=== PATIENT | male | born 1945 | race Caucasian/White ===

== ENCOUNTER → 2017-08-03 | Outpatient (CLI) | payer MEDICARE, OTHER ==
[~2017-08-03] MED LIST: AMITRIPTYLINE25 MG PO; ANAFRANIL50 MG PO; ASA; ASPI-COR81 M1 PO; BENTYL10 MG PO; CIPRO500 MG PO; COLACE100 MG PO; CYMBALTA60 M1 PO; ENALAPRIL2.5 MG PO; EPA/GLA1 SGL PO; FAT ABSORB1 CAP PO; FIBER PILL; FINASTERIDE5 MG PO; FISH OIL 500MG500 MG PO; FLONASE 0.05% 121 EA NAS; GLIMEPIRIDE4 MG PO; KEFLEX500 MG PO; METFORMIN HCL500 M1 PO; MIRALAX17 GM/DOSE PO; PLAVIX75 MG PO; POLYETHYLENE GLYCOL; SERTRALINE HCL50 MG PO; SIMVASTATIN20 MG; VITAMIN D5000 IU PO; XANAX0.25 MG PO
[2017-08-03 10:33] LABS: CHOLESTEROL 131 mg/dL (<200); TRIGLYCERIDES 34 mg/dl (<150); VLDL CHOLESTEROL 7 mg/dL (6-40)
[2017-08-03 10:35] LABS: HDL CHOLESTEROL 69 mg/dl (40-60); LDL CHOLESTEROL 55 mg/dL (9-159)
== END | disposition home or self-care (01) ==
LOC: LAB 09:09
PROVIDERS: Internal Medicine Cardiovascular Disease
DX: E78.5 Hyperlipidemia, unspecified (principal)

== ENCOUNTER → 2017-08-31 | Outpatient (CLI) | payer MEDICARE, OTHER | END | disposition home or self-care (01) | LOC: RAD 14:44 | DX: M16.11 Unilateral primary osteoarthritis, right hip (principal); M76.9 Unspecified enthesopathy, lower limb, excluding foot ==

== ENCOUNTER → 2017-10-16 | Outpatient (CLI) | payer MEDICARE, OTHER | LOC: LAB 14:30 | DX: Z12.5 Encounter for screening for malignant neoplasm of prostate (principal) ==

== ENCOUNTER → 2017-12-04 | Outpatient (CLI) | payer MEDICARE, OTHER ==
[~2017-12-04] MED LIST changes: -BENTYL10 MG PO; +BENTYL20 MG/2 ML PO; +GLUCOPHAGE500 M1 PO; -METFORMIN HCL500 M1 PO; +MIRALAX17 GM PO; -MIRALAX17 GM/DOSE PO
== END | disposition home or self-care (01) ==
LOC: LAB 08:30 → CT 09:00
PROVIDERS: Internal Medicine
DX: N28.1 Cyst of kidney, acquired (principal); R10.31 Right lower quadrant pain

== ENCOUNTER → 2017-12-14 | Day surgery (SDC) | payer MEDICARE, OTHER ==
[2017-12-11 10:05] VITALS: BP 132/67
[~2017-12-14] VITALS: Ht 182.8 cm; Wt 90.7 kg
[~2017-12-14] MED LIST changes: +AMITIZA8 MCG PO; +CYMBALTA60 MG PO; +FISH OIL 1,0001 EAC3 PO; +PANTOPRAZOLE SO40 MG PO
--- NOTE | ~2017-12-14 | PROC NOTE ---
[place], [place] PROCEDURE NOTE NAME: [facility] #: [id number] UNIT #: [id number] ROOM: DOCTOR: HILLARY FUNK MD BIRTHDATE: [birth year] DOS: 12/14/2017 PREOPERATIVE DIAGNOSIS: Forehead skin lesion. POSTOPERATIVE DIAGNOSIS: Forehead skin lesion. PROCEDURE: Excision of forehead skin lesion. SURGEON: Hillary Funk MD RACING MECHANIC: KRISTIE. ANESTHESIA: MAC with local (1% plain lidocaine). INDICATIONS: This is a 72-year-old gentleman who is here for an excision of a forehead skin lesion. The procedure and its complications were explained to the patient in detail preoperatively. Complications that were discussed included but were not limited to, bleeding, infection and prolonged pain. He agreed to proceed. DESCRIPTION OF PROCEDURE: After identifying the patient, the patient was brought to the operating room and placed in a supine position. After IV sedation was administered, a timeout procedure was called and an elliptical incision was marked around the area of the lesion that needed to be excised, 1% plain lidocaine was injected for local anesthesia. An incision was made and deepened in layers and with the help of electrocautery hemostasis was achieved and the lesion was then excised and sent for histopathological diagnosis. Hemostasis was confirmed with the help of electrocautery and thereafter the edges of the skin were undermined for adequate closure, which was performed with the help of 3-0 nylon in an interrupted fashion. A dressing was placed. The patient tolerated the procedure well and was brought back to the recovery room in stable fashion. There were no complications. Dr. Hillary Funk, the attending surgeon, was present throughout the operating case. Hillary Funk MD CM:PROCNOTE:PROCEDURE NOTE [id number] HILLARY FUNK MD
[2017-12-14 07:45] VITALS: BP 106/66
[2017-12-14 08:59] VITALS: BP 113/63
[2017-12-14 09:14] VITALS: BP 116/69
== END ==
LOC: SDC 12-11 09:30
DX: D04.39 Carcinoma in situ of skin of other parts of face (principal); L57.0 Actinic keratosis; I25.10 Atherosclerotic heart disease of native coronary artery without angina pectoris; E11.9 Type 2 diabetes mellitus without complications; K21.9 Gastro-esophageal reflux disease without esophagitis; F41.9 Anxiety disorder, unspecified; F32.9 Major depressive disorder, single episode, unspecified; Z98.890 Other specified postprocedural states; Z95.0 Presence of cardiac pacemaker; E78.5 Hyperlipidemia, unspecified; Z79.899 Other long term (current) drug therapy; J45.909 Unspecified asthma, uncomplicated; Z83.3 Family history of diabetes mellitus; Z80.9 Family history of malignant neoplasm, unspecified

== ENCOUNTER → 2018-03-15 | Outpatient (CLI) | payer MEDICARE, OTHER | END | disposition home or self-care (01) | LOC: RAD 12:48 | DX: M19.011 Primary osteoarthritis, right shoulder (principal) ==

== ENCOUNTER → 2018-05-01 | Outpatient (CLI) | payer MEDICARE, OTHER ==
[~2018-05-01] MED LIST changes: +PROBIOTIC GOLD1 EACH PO; +VITAMIN D-32000 UNIT PO; -VITAMIN D5000 IU PO; -XANAX0.25 MG PO; +XANAX0.5 MG PO
== END | disposition home or self-care (01) ==
LOC: ORTHO 09:01 → LAB 10:58
DX: R22.30 Localized swelling, mass and lump, unspecified upper limb (principal)

== ENCOUNTER → 2018-05-04 | Outpatient (CLI) | payer MEDICARE, OTHER ==
[2018-05-04 10:42] LABS: BASO % 0.7 % (0.0-1.0); EOS # 0.1 10*3/uL (0.0-0.4); EOS % 2.3 % (1.0-4.0); HEMATOCRIT 39.9 % (42.0-52.0); HEMOGLOBIN 13.5 g/dl (14.0-18.0); LYMPH # 1.5 10*3/uL (1.3-4.4); LYMPH % 24.2 % (27.0-41.0); MEAN CELL VOLUME 96.4 fl (80.0-94.0); MEAN CORPUSCULAR HGB 32.6 pg (27.0-31.0); MEAN CORPUSCULAR HGB CONC 33.8 g/dl (33.0-37.0); MEAN PLATELET VOLUME 9.6 fl (9.6-12.3); MONO # 0.6 10*3/uL (0.1-1.0); MONO % 9.1 % (3.0-9.0); NEUT # 3.8 10*3/uL (2.3-7.9); NEUT % 63.5 % (47.0-73.0); PLATELET COUNT AUTOMATED 233 10*3/uL (130-400); RED BLOOD COUNT 4.14 10*6/uL (4.50-5.90); RED CELL DISTRI WIDTH 12.4 % (0-14.5)
[2018-05-04 10:59] LABS: URIC ACID 5.7 mg/dL (3.5-7.2)
[2018-05-05 08:11] LABS: RHEUMATOID ARTHRITIS FACTOR <10.0 IU/mL (0.0-13.9)
== END | disposition home or self-care (01) ==
LOC: LAB 09:56
PROVIDERS: Orthopaedic Surgery
DX: M19.012 Primary osteoarthritis, left shoulder (principal); M10.9 Gout, unspecified; E55.9 Vitamin D deficiency, unspecified; Z79.899 Other long term (current) drug therapy

== ENCOUNTER → 2018-06-08 | Day surgery (SDC) | payer MEDICARE, OTHER ==
[~2018-06-08] VITALS: Ht 182.8 cm; Wt 93.0 kg
--- NOTE | ~2018-06-08 | PROC NOTE ---
[place], [place] PROCEDURE NOTE NAME: [facility] #: [id number] UNIT #: [id number] ROOM: DOCTOR: MISA MCCALLUM,YOLANDA BIRTHDATE: [birth year] DOS: PROCEDURE: Colonoscopy. INDICATIONS: History of colon polyps. Informed consent was obtained from the patient after the indication of procedure, the alternatives and potential complications were explained to him. PROCEDURE MEDICATION: Sedation was administered by Anesthesiology Department. SCOPE USED: Olympus diagnostic pediatric colonoscope variable stiffness GIF-180, depth of insertion was to the cecum, which was identified by the usual landmarks, appendiceal orifice, ileocecal valve and triangular fold, in addition to transillumination in the right lower quadrant. FINDINGS: After adequate sedation, the patient was placed in left lateral decubitus position. Rectal examination showed a normal sphincter tone and no external hemorrhoids. Scope was introduced into the rectum, then advanced to the cecum with some difficulty due to looping the left colon. The prep was adequate. The colon mucosa appeared normal with no evidence of polyps, diverticula or ulcerations. Retroflexed views in the rectum showed a grade 1 internal hemorrhoids. The scope was then withdrawn after the rectum was decompressed. The patient tolerated the procedure well. IMPRESSION: 1. Normal colon mucosa. No polyps seen. 2. No evidence of internal hemorrhoids. PLAN: There is no need for further GI workup at this time. Repeat surveillance colonoscopy is advised in 5 years. Office followup will be scheduled on p.r.n. YOLANDA BYNUM MD CM:PROCNOTE:PROCEDURE NOTE [id number] COLLINS BYNUM MD
[2018-06-08 09:10] VITALS: BP 123/89
[2018-06-08 09:38] VITALS: BP 93/64
[2018-06-08 09:55] VITALS: BP 114/51
[2018-06-08 10:10] VITALS: BP 133/87
[2018-06-08 12:49] VITALS: BP 94/56
[2018-06-08 12:56] VITALS: BP 104/61
== END | disposition home or self-care (01) ==
LOC: SDC 05-28 08:00
DX: Z12.11 Encounter for screening for malignant neoplasm of colon (principal); Z86.010 Personal history of colon polyps; K64.1 Second degree hemorrhoids; K21.9 Gastro-esophageal reflux disease without esophagitis; K27.9 Peptic ulcer, site unspecified, unspecified as acute or chronic, without hemorrhage or perforation; E11.9 Type 2 diabetes mellitus without complications; I25.10 Atherosclerotic heart disease of native coronary artery without angina pectoris; F41.9 Anxiety disorder, unspecified; F32.9 Major depressive disorder, single episode, unspecified; Z79.899 Other long term (current) drug therapy; Z95.0 Presence of cardiac pacemaker; Z98.890 Other specified postprocedural states
CPT/HCPCS: 00812; G0105

== ENCOUNTER 2018-06-15 18:23 | Emergency (ER) | payer MEDICARE, OTHER ==
[~2018-06-15] VITALS: Ht 182.8 cm; Wt 90.7 kg
== END 2018-06-15 20:19 | disposition home or self-care (01) ==
LOC: ED 18:23
DX: S83.91XA Sprain of unspecified site of right knee, initial encounter (principal); Z79.82 Long term (current) use of aspirin; Z79.84 Long term (current) use of oral hypoglycemic drugs; Z79.899 Other long term (current) drug therapy; Z95.0 Presence of cardiac pacemaker; X50.1XXA Overexertion from prolonged static or awkward postures, initial encounter; Y93.89 Activity, other specified; Y92.89 Other specified places as the place of occurrence of the external cause; Y99.8 Other external cause status

== ENCOUNTER → 2018-07-24 | Outpatient (CLI) | payer MEDICARE, OTHER | END | disposition home or self-care (01) | LOC: US 14:13 | DX: M79.661 Pain in right lower leg (principal); R60.0 Localized edema ==

== ENCOUNTER → 2018-08-07 | Outpatient (CLI) | payer MEDICARE, OTHER ==
[2018-08-07 13:40] LABS: CHOLESTEROL 102 mg/dL (<200); TRIGLYCERIDES 57 mg/dl (<150); VLDL CHOLESTEROL 11 mg/dL (6-40)
[2018-08-07 13:41] LABS: HDL CHOLESTEROL 55 mg/dl (40-60); LDL CHOLESTEROL 36 mg/dL (9-159)
== END ==
LOC: LAB 12:15
PROVIDERS: Internal Medicine Cardiovascular Disease
DX: E78.5 Hyperlipidemia, unspecified (principal)

== ENCOUNTER → 2018-10-17 | Outpatient (CLI) | payer MEDICARE, OTHER | END | disposition home or self-care (01) | LOC: LAB 13:04 | DX: Z12.5 Encounter for screening for malignant neoplasm of prostate (principal) ==

== ENCOUNTER → 2019-01-21 | Outpatient (CLI) | payer MEDICARE, OTHER | END | disposition home or self-care (01) | LOC: ORTHO 02:19 → RAD 10:00 → ORTHO 20:08 | DX: M19.012 Primary osteoarthritis, left shoulder (principal); M19.011 Primary osteoarthritis, right shoulder; M75.101 Unspecified rotator cuff tear or rupture of right shoulder, not specified as traumatic ==

== ENCOUNTER → 2019-07-10 | Outpatient (CLI) | payer MEDICARE, OTHER ==
[2019-07-10 11:47] LABS: BASO % 0.5 % (0.0-1.0); EOS # 0.2 10*3/uL (0.0-0.4); EOS % 1.7 % (1.0-4.0); HEMATOCRIT 38.4 % (42.0-52.0); HEMOGLOBIN 12.5 g/dl (14.0-18.0); LYMPH # 1.2 10*3/uL (1.3-4.4); LYMPH % 13.7 % (27.0-41.0); MEAN CELL VOLUME 101.1 fl (80.0-94.0); MEAN CORPUSCULAR HGB 32.9 pg (27.0-31.0); MEAN CORPUSCULAR HGB CONC 32.6 g/dl (33.0-37.0); MEAN PLATELET VOLUME 9.3 fl (9.6-12.3); MONO # 0.5 10*3/uL (0.1-1.0); MONO % 5.3 % (3.0-9.0); NEUT # 6.9 10*3/uL (2.3-7.9); NEUT % 78.5 % (47.0-73.0); PLATELET COUNT AUTOMATED 285 10*3/uL (130-400); RED CELL DISTRI WIDTH 12.7 % (0-14.5); WHITE BLOOD COUNT 8.8 10*3/uL (4.8-10.8)
[2019-07-10 12:21] LABS: ALBUMIN 3.2 gm/dl (3.1-4.5); BUN 22 mg/dl (7-24); CHLORIDE 109 mmol/L (98-107); CHOLESTEROL 98 mg/dL (<200); POTASSIUM 4.9 mmol/L (3.5-5.1); SGOT/AST 17 IU/L (3-35); SGPT/ALT 21 U/L (12-78); SODIUM 142 mmol/L (136-145)
[2019-07-10 12:30] LABS: ALKALINE PHOSPHATASE 91 U/L (45-117); CREATININE 0.98 mg/dL (0.70-1.30); FREE T4 0.78 ng/dl (0.76-1.46); HDL CHOLESTEROL 42 mg/dl (40-60); LDL CHOLESTEROL 33 mg/dL (9-159); TOTAL PROTEIN 6.7 gm/dL (6.4-8.2); TRIGLYCERIDES 113 mg/dl (<150); VLDL CHOLESTEROL 23 mg/dL (6-40)
[2019-07-10 12:52] LABS: VITAMIN D, 25-HYDROXY 23.8 ng/mL (30-100)
== END | disposition home or self-care (01) ==
LOC: LAB 11:27
PROVIDERS: Internal Medicine
DX: E55.9 Vitamin D deficiency, unspecified (principal); E78.2 Mixed hyperlipidemia; I10 Essential (primary) hypertension; E11.9 Type 2 diabetes mellitus without complications; D52.9 Folate deficiency anemia, unspecified; D51.9 Vitamin B12 deficiency anemia, unspecified

== ENCOUNTER 2019-08-29 15:04 | Emergency (ER) | payer MEDICARE, OTHER ==
[~2019-08-29] VITALS: Ht 182.8 cm; Wt 92.5 kg
== END 2019-08-29 17:56 | disposition home or self-care (01) ==
LOC: ED 15:04
DX: S63.502A Unspecified sprain of left wrist, initial encounter (principal); S40.012A Contusion of left shoulder, initial encounter; S09.90XA Unspecified injury of head, initial encounter; K21.9 Gastro-esophageal reflux disease without esophagitis; E11.9 Type 2 diabetes mellitus without complications; Z79.899 Other long term (current) drug therapy; Z79.82 Long term (current) use of aspirin; Z95.0 Presence of cardiac pacemaker; W10.8XXA Fall (on) (from) other stairs and steps, initial encounter; Y93.89 Activity, other specified; Y92.89 Other specified places as the place of occurrence of the external cause; Y99.8 Other external cause status

== ENCOUNTER → 2019-10-15 | Outpatient (CLI) | payer MEDICARE, OTHER | END | disposition home or self-care (01) | LOC: LAB 14:55 | DX: Z12.5 Encounter for screening for malignant neoplasm of prostate (principal) ==

== ENCOUNTER → 2019-11-21 | Outpatient (CLI) | payer MEDICARE, OTHER ==
[2019-11-21 16:35] LABS: CHOLESTEROL 108 mg/dL (<200); HDL CHOLESTEROL 51 mg/dl (40-60); LDL CHOLESTEROL 45 mg/dL (9-159); TRIGLYCERIDES 60 mg/dl (<150); VLDL CHOLESTEROL 12 mg/dL (6-40)
== END | disposition home or self-care (01) ==
LOC: LAB 15:46
PROVIDERS: Internal Medicine
DX: E78.49 Other hyperlipidemia (principal)

== ENCOUNTER → 2020-01-16 | Outpatient (CLI) | payer MEDICARE, OTHER | END | disposition home or self-care (01) | LOC: US 12-25 11:00 | DX: I65.23 Occlusion and stenosis of bilateral carotid arteries (principal) ==

== ENCOUNTER → 2020-08-26 | Outpatient (CLI) | payer MEDICARE, OTHER | END | disposition home or self-care (01) | LOC: US 10:30 | PROVIDERS: ATTEND Internal Medicine | DX: I73.9 Peripheral vascular disease, unspecified (principal) ==

== ENCOUNTER → 2020-10-19 | Outpatient (CLI) | payer MEDICARE, OTHER | END | disposition home or self-care (01) | LOC: LAB 09:47 | PROVIDERS: ATTEND Urology | DX: Z12.5 Encounter for screening for malignant neoplasm of prostate (principal) ==

== ENCOUNTER → 2020-11-18 | Outpatient (CLI) | payer MEDICARE, OTHER ==
[2020-11-18 12:17] LABS: CREATININE 1.04 mg/dL (0.70-1.30)
== END | disposition home or self-care (01) ==
LOC: LAB 11:49
PROVIDERS: ATTEND Internal Medicine
DX: M51.36 Other intervertebral disc degeneration, lumbar region (principal); M48.061 Spinal stenosis, lumbar region without neurogenic claudication; M25.78 Osteophyte, vertebrae

== ENCOUNTER → 2020-11-23 | Outpatient (CLI) | payer MEDICARE, OTHER | END | disposition home or self-care (01) | LOC: CT 09:00 | PROVIDERS: ATTEND Internal Medicine | DX: I65.23 Occlusion and stenosis of bilateral carotid arteries (principal); R41.3 Other amnesia ==

== ENCOUNTER 2021-01-02 11:17 | Emergency (ER) | payer MEDICARE, OTHER ==
[~2021-01-02] VITALS: Wt 94.3 kg
== END 2021-01-02 13:36 | disposition home or self-care (01) ==
LOC: ED 11:17
DX: S89.91XA Unspecified injury of right lower leg, initial encounter (principal); M13.861 Other specified arthritis, right knee; F41.9 Anxiety disorder, unspecified; F32.9 Major depressive disorder, single episode, unspecified; K21.9 Gastro-esophageal reflux disease without esophagitis; E11.9 Type 2 diabetes mellitus without complications; Z79.82 Long term (current) use of aspirin; Z79.899 Other long term (current) drug therapy; Z95.0 Presence of cardiac pacemaker; Z98.890 Other specified postprocedural states; X58.XXXA Exposure to other specified factors, initial encounter; Y93.89 Activity, other specified; Y92.89 Other specified places as the place of occurrence of the external cause; Y99.8 Other external cause status

== ENCOUNTER 2021-02-19 19:34 | Emergency (ER) | payer MEDICARE, OTHER ==
[~2021-02-19] VITALS: Ht 182.8 cm; Wt 94.3 kg
== END 2021-02-19 23:11 | disposition home or self-care (01) ==
LOC: ED 19:34
DX: S46.911A Strain of unspecified muscle, fascia and tendon at shoulder and upper arm level, right arm, initial encounter (principal); S66.911A Strain of unspecified muscle, fascia and tendon at wrist and hand level, right hand, initial encounter; S09.90XA Unspecified injury of head, initial encounter; F41.9 Anxiety disorder, unspecified; F32.9 Major depressive disorder, single episode, unspecified; K21.9 Gastro-esophageal reflux disease without esophagitis; Z79.82 Long term (current) use of aspirin; Z79.899 Other long term (current) drug therapy; Z79.84 Long term (current) use of oral hypoglycemic drugs; Z98.890 Other specified postprocedural states; W19.XXXA Unspecified fall, initial encounter; Y93.E1 Activity, personal bathing and showering; Y92.89 Other specified places as the place of occurrence of the external cause; Y99.8 Other external cause status

== ENCOUNTER → 2021-04-20 | Outpatient (CLI) | payer MEDICARE, OTHER | END | disposition home or self-care (01) | LOC: US 15:30 | PROVIDERS: ATTEND Internal Medicine | DX: I73.9 Peripheral vascular disease, unspecified (principal) ==

== ENCOUNTER → 2021-04-27 | Outpatient (CLI) | payer MEDICARE, OTHER | END | disposition home or self-care (01) | LOC: US 11:22 | PROVIDERS: ATTEND Surgery Vascular Surgery | DX: I65.23 Occlusion and stenosis of bilateral carotid arteries (principal) ==

== ENCOUNTER 2021-06-12 07:17 | Emergency (ER) | payer MEDICARE, OTHER ==
[~2021-06-12] VITALS: Ht 182.8 cm; Wt 95.3 kg
== END 2021-06-12 08:14 | disposition home or self-care (01) ==
LOC: ED 07:17
DX: R04.0 Epistaxis (principal); I25.10 Atherosclerotic heart disease of native coronary artery without angina pectoris; Z95.0 Presence of cardiac pacemaker; Z79.82 Long term (current) use of aspirin; Z79.899 Other long term (current) drug therapy

== ENCOUNTER 2021-10-12 19:28 | Emergency (ER) | payer MEDICARE, OTHER ==
[~2021-10-12] VITALS: Ht 182.8 cm; Wt 79.8 kg
[2021-10-12 23:43] LABS: BASO % 0.5 % (0.0-1.0); EOS # 0.1 10*3/uL (0.0-0.4); EOS % 1.6 % (1.0-4.0); HEMATOCRIT 35.4 % (42.0-52.0); LYMPH # 1.8 10*3/uL (1.3-4.4); LYMPH % 21.5 % (27.0-41.0); MEAN CELL VOLUME 97.3 fl (80.0-94.0); MEAN CORPUSCULAR HGB 32.7 pg (27.0-31.0); MEAN CORPUSCULAR HGB CONC 33.6 g/dl (33.0-37.0); MEAN PLATELET VOLUME 9.1 fl (9.6-12.3); MONO # 0.7 10*3/uL (0.1-1.0); MONO % 7.8 % (3.0-9.0); NEUT # 5.7 10*3/uL (2.3-7.9); NEUT % 68.4 % (47.0-73.0); PLATELET COUNT AUTOMATED 224 10*3/uL (130-400); RED BLOOD COUNT 3.64 10*6/uL (4.50-5.90); RED CELL DISTRI WIDTH 12.2 % (0-14.5); WHITE BLOOD COUNT 8.4 10*3/uL (4.8-10.8)
== END 2021-10-13 00:08 | disposition home or self-care (01) ==
LOC: ED 19:28
PROVIDERS: Internal Medicine
DX: R04.0 Epistaxis (principal); D64.9 Anemia, unspecified; Z79.82 Long term (current) use of aspirin; Z79.899 Other long term (current) drug therapy

== ENCOUNTER → 2021-12-08 | Outpatient (CLI) | payer MEDICARE, OTHER | END | disposition home or self-care (01) | LOC: US 11-29 10:30 | PROVIDERS: ATTEND Internal Medicine | DX: I65.23 Occlusion and stenosis of bilateral carotid arteries (principal) ==

== ENCOUNTER → 2021-12-21 | Outpatient (CLI) | payer MEDICARE, OTHER ==
[2021-12-21 09:31] LABS: CREATININE 1.19 mg/dL (0.70-1.30)
== END | disposition home or self-care (01) ==
LOC: LAB 08:58 → CT 08:58
PROVIDERS: Radiology Diagnostic Radiology; ATTEND Internal Medicine
DX: I65.23 Occlusion and stenosis of bilateral carotid arteries (principal)

== ENCOUNTER → 2022-03-02 | Outpatient (CLI) | payer MEDICARE, OTHER ==
[2022-03-02 15:35] LABS: BASO % 0.4 % (0.0-1.0); EOS # 0.1 10*3/uL (0.0-0.4); EOS % 0.8 % (1.0-4.0); HEMATOCRIT 39.5 % (42.0-52.0); LYMPH # 1.2 10*3/uL (1.3-4.4); LYMPH % 16.1 % (27.0-41.0); MEAN CELL VOLUME 95.9 fl (80.0-94.0); MEAN CORPUSCULAR HGB 32.3 pg (27.0-31.0); MEAN CORPUSCULAR HGB CONC 33.7 g/dl (33.0-37.0); MONO # 0.5 10*3/uL (0.1-1.0); MONO % 6.3 % (3.0-9.0); NEUT # 5.7 10*3/uL (2.3-7.9); PLATELET COUNT AUTOMATED 230 10*3/uL (130-400); RED BLOOD COUNT 4.12 10*6/uL (4.50-5.90); RED CELL DISTRI WIDTH 12.3 % (0-14.5); WHITE BLOOD COUNT 7.5 10*3/uL (4.8-10.8)
[2022-03-02 16:12] LABS: ALKALINE PHOSPHATASE 57 U/L (45-117); BUN 32 mg/dl (7-24); CHLORIDE 105 mmol/L (98-107); CHOLESTEROL 131 mg/dL (<200); CREATININE 1.16 mg/dL (0.70-1.30); FREE T4 0.83 ng/dl (0.76-1.46); LDL CHOLESTEROL 59 mg/dL (9-159); POTASSIUM 5.1 mmol/L (3.5-5.1); SGOT/AST 16 IU/L (3-35); SGPT/ALT 18 U/L (12-78); SODIUM 140 mmol/L (136-145); T3 UPTAKE 34 % (31-39); TOTAL PROTEIN 6.8 gm/dL (6.4-8.2); TRIGLYCERIDES 52 mg/dl (<150)
[2022-03-02 16:30] LABS: VITAMIN D, 25-HYDROXY 26.3 ng/mL (30-100)
== END | disposition home or self-care (01) ==
LOC: LAB 15:18
PROVIDERS: ATTEND Internal Medicine
DX: Z13.89 Encounter for screening for other disorder (principal); I10 Essential (primary) hypertension; E11.9 Type 2 diabetes mellitus without complications; E55.9 Vitamin D deficiency, unspecified; Z13.29 Encounter for screening for other suspected endocrine disorder

== ENCOUNTER 2022-08-31 19:42 | Emergency (ER) | payer MEDICARE, OTHER ==
[~2022-08-31] VITALS: Ht 177.8 cm; Wt 77.1 kg
[~2022-08-31 19:42] MED LIST changes: -GLUCOPHAGE500 M1 PO; +GLUCOPHAGE500 MG PO
[2022-08-31 21:20] LABS: BASO % 0.6 % (0.0-1.0); EOS # 0.1 10*3/uL (0.0-0.4); EOS % 0.9 % (1.0-4.0); HEMATOCRIT 39.4 % (42.0-52.0); LYMPH # 1.3 10*3/uL (1.3-4.4); LYMPH % 20.2 % (27.0-41.0); MEAN CELL VOLUME 101.8 fl (80.0-94.0); MEAN CORPUSCULAR HGB 34.1 pg (27.0-31.0); MEAN CORPUSCULAR HGB CONC 33.5 g/dl (33.0-37.0); MEAN PLATELET VOLUME 9.9 fl (9.6-12.3); MONO # 0.5 10*3/uL (0.1-1.0); MONO % 6.9 % (3.0-9.0); NEUT # 4.7 10*3/uL (2.3-7.9); NEUT % 71.2 % (47.0-73.0); PLATELET COUNT AUTOMATED 206 10*3/uL (130-400); RED BLOOD COUNT 3.87 10*6/uL (4.50-5.90); RED CELL DISTRI WIDTH 12.8 % (0-14.5); WHITE BLOOD COUNT 6.6 10*3/uL (4.8-10.8)
[2022-08-31 21:37] LABS: ALKALINE PHOSPHATASE 64 U/L (45-117); BUN 42 mg/dl (7-24); CHLORIDE 106 mmol/L (98-107); CREATININE 1.34 mg/dL (0.70-1.30); POTASSIUM 5.6 mmol/L (3.5-5.1); SGOT/AST 20 IU/L (3-35); SGPT/ALT 38 U/L (12-78); SODIUM 141 mmol/L (136-145); TOTAL PROTEIN 6.7 gm/dL (6.4-8.2)
[2022-08-31 21:38] LABS: ACETAMINOPHEN (TYLENOL) < 5.0 ug/ml (10-30); ETHYL ALCOHOL < 3.0 mg/dl (<3)
[2022-08-31 21:56] LABS: BILIRUBIN Negative (Negative); BLOOD Negative (Negative); CLARITY Clear (Clear); COLOR Yellow (Yellow); GLUCOSE Negative (Negative); KETONE Negative (Negative); LEUKO ESTERASE Negative (Negative); NITRITE Negative (Negative)
[2022-08-31 22:04] LABS: URINE AMPHETAMINES < 1000 (1000ng/ml); URINE BARBITURATES < 200 (200ng/ml); URINE BENZODIAZEPINES < 200 (200ng/ml); URINE CANNABINOIDS (THC) < 50 (50ng/ml); URINE COCAINE < 300 (300ng/ml); URINE METHADONE < 300 (300ng/ml); URINE OPIATES < 300 (300ng/ml)
[2022-08-31 22:09] LABS: URINE PHENCYCLIDINE < 25 (25ng/ml)
[2022-08-31 22:12] LABS: EPITHELIAL CELLS 0-2; RBC 0-2 rbc/hpf (0-2); WBC 0-2 wbc/hpf (0-5)
[2022-09-01] MEDS ORDERED: OXYBUTYNIN5 MG PO (03:37)
[2022-09-01] MEDS ORDERED: NORTRIPTYLINE H25 M1 PO (03:46)
[2022-09-01] MEDS ORDERED: NAMENDA10 MG PO (03:48)
[2022-09-01] MEDS ORDERED: RISPERIDONE0.5 MG PO (03:49)
[2022-09-01] MEDS ORDERED: MIRTAZAPINE15 M2 PO (04:02)
[2022-09-01] MEDS ORDERED: HYDROXYZINE PAM25 M1 PO (04:11)
[2022-09-01] MEDS ORDERED: RIVASTIGMINE TAR6 M1 PO (04:13)
[2022-09-05] MEDS ORDERED: MEMANTINE HCL10 MG PO (10:30)
[2022-09-05] MEDS ORDERED: DIVALPROEX SOD125 M1 PO ×2 (10:30)
[2022-09-05] MEDS ORDERED: RIVASTIGMINE1 EAC2 T (10:30)
[2022-09-05] MEDS ORDERED: RAMELTEON8 MG PO (10:30)
[2022-09-05] MEDS ORDERED: VITAMIN D3125 MC1 PO (10:30)
== END 2022-09-01 01:41 | disposition home or self-care (01) ==
LOC: ED 19:42
PROVIDERS: Physician Assistant
DX: F03.90 Unspecified dementia, unspecified severity, without behavioral disturbance, psychotic disturbance, mood disturbance, and anxiety (principal)

== ENCOUNTER 2023-10-16 07:42 | Emergency (ER) | payer MEDICARE, OTHER ==
[~2023-10-16] VITALS: Ht 172.7 cm; Wt 91.8 kg
[~2023-10-16 07:42] MED LIST changes: +CLOPIDOGREL75 MG PO; +DIVALPROEX SOD125 M1 PO; +FINASTERIDE5 M1 PO; +HYDROXYZINE HCL25 MG PO; +HYDROXYZINE PAM25 M1 PO; +MEMANTINE HCL10 MG PO; +MIRTAZAPINE15 M2 PO; +NAMENDA10 MG PO; +NORTRIPTYLINE H25 M1 PO; +NORVASC5 MG PO; +OXYBUTYNIN5 MG PO; +RAMELTEON8 MG PO; +REMERON15 M2 PO; +RISPERDAL0.5 MG PO; +RISPERIDONE0.5 MG PO; +RIVASTIGMINE TAR6 M1 PO; +RIVASTIGMINE1 EAC2 T; +VITAMIN D3125 MC1 PO
[2023-10-16 08:05] LABS: BASO # 0.1 10*3/uL (0.0-0.1); BASO % 0.5 % (0.0-1.0); EOS # 0.3 10*3/uL (0.0-0.4); EOS % 2.7 % (1.0-4.0); HEMATOCRIT 42.3 % (42.0-52.0); LYMPH # 1.9 10*3/uL (1.3-4.4); LYMPH % 17.5 % (27.0-41.0); MEAN CELL VOLUME 102.4 fl (80.0-94.0); MEAN CORPUSCULAR HGB 33.4 pg (27.0-31.0); MEAN CORPUSCULAR HGB CONC 32.6 g/dl (33.0-37.0); MEAN PLATELET VOLUME 10.1 fl (9.6-12.3); MONO # 0.9 10*3/uL (0.1-1.0); MONO % 8.7 % (3.0-9.0); NEUT # 7.5 10*3/uL (2.3-7.9); NEUT % 70.3 % (47.0-73.0); PLATELET COUNT AUTOMATED 146 10*3/uL (130-400); RED BLOOD COUNT 4.13 10*6/uL (4.50-5.90); RED CELL DISTRI WIDTH 12.6 % (0-14.5); WHITE BLOOD COUNT 10.7 10*3/uL (4.8-10.8)
[2023-10-16] MEDS ORDERED: LAXATIVE5 MG PO (08:22)
[2023-10-16] MEDS ORDERED: XANAX0.5 MG PO ×2 (08:23→08:26)
[2023-10-16] MEDS ORDERED: LASIX20 MG PO (08:24)
[2023-10-16] MEDS ORDERED: JARDIANCE10 MG PO (08:24)
[2023-10-16] MEDS ORDERED: GERI-KOT8.6 MG PO (08:25)
[2023-10-16] MEDS ORDERED: NAMENDA-28 PO (08:27)
[2023-10-16] MEDS ORDERED: MORPHINE S20 MG/5 ML PO (08:28)
[2023-10-16] MEDS ORDERED: TYLENOL325 M3 PO (08:29)
[2023-10-16] MEDS ORDERED: MILK OF MA400 MG/53 PO (08:29)
[2023-10-16] MEDS ORDERED: EXELON1 EAC2 TD (08:30)
[2023-10-16 08:58] LABS: BILIRUBIN Negative (Negative); BLOOD 2+ (Negative); CLARITY Clear (Clear); COLOR Yellow (Yellow); GLUCOSE 3+ (Negative); KETONE Trace (Negative); LEUKO ESTERASE 1+ (Negative); NITRITE Negative (Negative); PH 5.5 (4.5-8.0); SPECIFIC GRAVITY 1.025 (1.001-1.030); UROBILINOGEN 0.2 E.U./dl (0.0-1.0)
[2023-10-16 09:02] LABS: ALKALINE PHOSPHATASE 80 U/L (46-116); BUN 28 mg/dl (9-23); CHLORIDE 112 mmol/L (98-107); SGPT/ALT 8 U/L (5-49); TOTAL PROTEIN 6.7 gm/dL (6.0-8.0)
[2023-10-16 09:14] LABS: RBC 31-40 rbc/hpf (0-2); WBC TNTC wbc/hpf (0-5)
[2023-10-16 09:15] LABS: BACTERIA 2+
[2023-10-16] MEDS ORDERED: SEPTDS PO (09:42)
== END 2023-10-16 10:48 | disposition home or self-care (01) ==
LOC: ED 07:42
PROVIDERS: Emergency Medicine
DX: M25.559 Pain in unspecified hip (principal); F41.9 Anxiety disorder, unspecified; F32.A Depression, unspecified; K21.9 Gastro-esophageal reflux disease without esophagitis; E11.9 Type 2 diabetes mellitus without complications; Z98.890 Other specified postprocedural states; Z79.899 Other long term (current) drug therapy